=== PATIENT | male | born 1950 | race Caucasian/White ===

== ENCOUNTER 2017-03-11 07:58 | Day surgery (SDC) | payer MEDICARE, OTHER ==
[~2017-03-11] VITALS: Ht 180.3 cm; Wt 102.1 kg
[~2017-03-11 07:58] MED LIST: BUPIVACAINE/PF 0.5% ONE; EPINEPHRINE 1 MG/ML, 1ML ONE; LEVO50TA5 PO
[2017-03-11 08:21] VITALS: BP 158/100
[2017-03-11] MEDS ORDERED: LIDOCAINE 1%, 2ML ONE (08:50)
[2017-03-11] MEDS ORDERED: MIDAZOLAM 1 MG/ML, 2ML ONE (09:44)
[2017-03-11] MEDS ORDERED: FENTANYL PF 100 MCG/2ML ONE (09:44)
[2017-03-11] MEDS ORDERED: SUCCINYLCHOLINE 20 MG/ML, 10ML ONE (09:55)
[2017-03-11] MEDS ORDERED: ROCURONIUM 10 MG/ML ONE (09:55)
[2017-03-11] MEDS ORDERED: CEFAZOLIN 1,000 MG ONE ×2 (10:26)
[2017-03-11] MEDS ORDERED: PROPOFOL 10 MG/ML, 20ML ONE ×2 (10:26)
[2017-03-11] MEDS ORDERED: LIDOCAINE-MPF 2% ,5ML ONE (10:26)
[2017-03-11] MEDS ORDERED: DEXAMETHASONE 4 MG/ML, 1ML ONE ×2 (10:26)
[2017-03-11] MEDS ORDERED: ONDANSETRON 2MG/ML, 2ML ONE (10:26)
[2017-03-11] MEDS ORDERED: LACTATED RINGERS 1,000 ML IV SCH (11:02)
[2017-03-11] MEDS ORDERED: OXYcodone 5 MG/5 ML ORAL.SOL UDC ONE (11:11)
[2017-03-11] MEDS ORDERED: ACETAMINOPHEN 650 MG/20.3 ML UDC ONE (11:11)
[2017-03-11] MEDS ORDERED: ACETAMINOPHEN 325 MG TABLET ONE (11:12)
[2017-03-11] MEDS ORDERED: KETOROLAC 30 MG/1 ML ONE (11:12)
[2017-03-11] MEDS ORDERED: MEPERIDINE/PF 25MG/0.5ML IVPush PRN (11:30)
[2017-03-11] MEDS ORDERED: HYDROmorphone 1 MG/ML, 1ML IV PRN (11:30)
[2017-03-11] MEDS ORDERED: PROMETHAZINE 25 MG/ML, 1ML IV PRN (11:30)
[2017-03-11] MEDS ORDERED: PROMETHAZINE 25 MG/ML, 1ML IM PRN (11:30)
[2017-03-11] MEDS ORDERED: morphine SULFATE 10 MG/ML, 1ML IVPush PRN (11:30)
[2017-03-11] MEDS ORDERED: KETOROLAC 30 MG/1 ML IV PRN (11:30)
[2017-03-11] MEDS ORDERED: FENTANYL PF 100 MCG/2ML IV PRN (11:30)
[2017-03-11] MEDS ORDERED: ONDANSETRON 2MG/ML, 2ML IVPush PRN (11:30)
[2017-03-11] MEDS ORDERED: OXYcodone 5 MG/5 ML ORAL.SOL UDC PO PRN (11:30)
[2017-03-11] MEDS ORDERED: ACETAMINOPHEN 325 MG TABLET PO PRN (11:30)
== END 2017-03-11 14:00 ==
LOC: OUT 07:58
PROVIDERS: ATTEND Surgery
DX: K42.9 Umbilical hernia without obstruction or gangrene (principal); E03.9 Hypothyroidism, unspecified; E66.9 Obesity, unspecified; Z68.31 Body mass index [BMI] 31.0-31.9, adult
CPT/HCPCS: 49585; 93005; C1729; C1781; J0171; J0330; J0690; J1100; J1885; J2250; J2405; J2704; J3010; J3490